=== PATIENT | female | born 1990 | race Asian ===

== ENCOUNTER 2017-02-19 18:10 | Observation (INO) | payer OTHER ==
[~2017-02-19] VITALS: Ht 149.9 cm; Wt 53.1 kg
[2017-02-19] MEDS ORDERED: PREN1TAB80 PO (18:33)
[2017-02-19] MEDS ORDERED: RINGERS SOLUTION,LACTATED 1,000 ML IV ONE (19:30)
[2017-02-19 20:49] VITALS: BP 118/75
[2017-02-19] MEDS: RINGERS SOLUTION,LACTATED 1,000 ML IV SCH (21:51)
[2017-02-19] MEDS ORDERED: ACETAMINOPHEN 325 MG TABLET PO ONE (23:30)
[2017-02-20 00:29] LABS: APPEARANCE,URINE CLEAR (CLEAR); BILIRUBIN,URINE NEGATIVE (NEGATIVE); GLUCOSE, URINE (UA) NEGATIVE (NEGATIVE); KETONES,URINE >=80 mg/dL (NEGATIVE); LEUKOCYTE ESTERASE ,URINE NEGATIVE (NEGATIVE); NITRATE,URINE NEGATIVE (NEGATIVE); OCCULT BLOOD,URINE TRACE (NEGATIVE); PROTEIN,URINE NEGATIVE (NEGATIVE); UROBILINOGEN,URINE 0.2 mg/dL (<=1.0)
[2017-02-20 00:41] LABS: BACTERIA,URINE Rare /HPF (None Seen); RBC,URINE 0-2 /HPF (0-2); SQUAMOUS EPITHELIAL CELL,UR Rare /LPF (None Seen); WBC,URINE 0-2 /HPF (0-5)
[2017-02-20] MEDS: RINGERS SOLUTION,LACTATED 1,000 ML IV SCH ×2 (02:09→10:41)
[2017-02-20] MEDS ORDERED: NIFEdipine 10 MG CAPSULE PO ONE (02:45)
[2017-02-20] MEDS ORDERED: FentaNYL CITRATE-PF 100 MCG/2 ML VIAL IVP ONE (02:45)
[2017-02-20] MEDS ORDERED: NIFEdipine 10 MG CAPSULE PO SCH ×2 (03:45→09:00)
[2017-02-20] MEDS ORDERED: BETAMETHASONE SOLUSPAN 6 MG/ML 5 ML VIAL IM SCH (03:45)
== END 2017-02-20 15:45 | disposition home or self-care (01) ==
LOC: EEVIPCON 18:10 → 4S 18:10
PROVIDERS: ADMIT Obstetrics & Gynecology; ATTEND Obstetrics & Gynecology
DX: O9A.212 Injury, poisoning and certain other consequences of external causes complicating pregnancy, second trimester (principal); O26.892 Other specified pregnancy related conditions, second trimester; M54.5 Low back pain; R10.31 Right lower quadrant pain; Z3A.26 26 weeks gestation of pregnancy
CPT/HCPCS: 59025; 76805; 81001; 82731; 86900; 87070; 87210; 96360; 96361 ×2; 96372; G0378 ×2; J0702; J7120 ×2